=== PATIENT | male | born 1960 | race Caucasian/White ===

== ENCOUNTER 2017-09-09 15:16 | Inpatient (IN) | payer OTHER ==
[2017-09-09 15:58] LABS: Basophils # (A) 0.1 k/uL (0-0.2); Basophils % (A) 1 %; Eosinophils # (A) 0.2 k/uL (0-0.7); Eosinophils % (A) 2 %; HCT 45.2 % (39.0-53.0); HGB 15.9 gm/dL (13.0-17.5); Lymphocytes # (A) 2.2 k/uL (1.0-4.8); Lymphocytes % (A) 30 %; MCH 31.2 pg (25.0-35.0); MCHC 35.3 g/dL (31.0-37.0); MCV 88.3 fL (80.0-100.0); Mean Platelet Volume 7.4; Monocytes # (A) 0.3 k/uL (0-1.0); Monocytes % (A) 4 %; Neutrophils # (A) 4.3 k/uL (1.3-7.7); Neutrophils % (A) 61 %; Platelet Count 284 k/uL (150-450); RBC 5.11 m/uL (4.30-5.90); WBC 7.1 k/uL (3.8-10.6)
[2017-09-09 16:03] LABS: Partial Thromboplastin Time 24.5 sec (22.0-30.0); Prothrombin Time 9.9 sec (9.0-12.0)
[2017-09-09 16:07] LABS: ALT 14 U/L (21-72); AST 22 U/L (17-59); Albumin 4.3 g/dL (3.5-5.0); Alkaline Phosphatase 65 U/L (38-126); Anion Gap 13 mmol/L; Blood Urea Nitrogen 14 mg/dL (9-20); Calcium 9.6 mg/dL (8.4-10.2); Carbon Dioxide 20 mmol/L (22-30); Chloride 110 mmol/L (98-107); Glucose 122 mg/dL (74-99); Potassium 3.9 mmol/L (3.5-5.1); Sodium 143 mmol/L (137-145); Total Bilirubin 0.4 mg/dL (0.2-1.3); Total Protein 6.8 g/dL (6.3-8.2)
--- NOTE | 2017-09-09 16:07 | XR ---
EXAMINATION TYPE: XR chest 2V DATE OF EXAM: 09/09/2017 COMPARISON: NONE TECHNIQUE: PA and lateral views submitted. HISTORY: Weakness FINDINGS: The lungs are clear and there is no pneumothorax, pleural effusion, or focal pneumonia. Hyperinflat ion suggests COPD. No overt failure. Hypertrophic and degenerative change of the spine noted. Subsegm ental changes are seen at the right lung base. IMPRESSION: 1. COPD correlate for right basilar atelectasis.
--- NOTE | 2017-09-09 16:22 | ED ---
General Adult HPI - General Chief complaint: Weakness Stated complaint: poss stroke Time Seen by Provider: 09/09/17 15:41 Source: patient, family, RN notes reviewed, old records reviewed Mode of arrival: ambulatory Limitations: no limitations - History of Present Illness Initial comments: 57-year-old male presenting for evaluation of multiple complaints. Patient states he has felt restless over the past several days. He's had some intermittent pain in his left arm. Describes this as a squeezing sensation in his left arm, comes And goes over the past several days. States he has been stressed, dealing with things at work. Denies any chest pain but states he has had some gas with mild nausea. No vomiting. No abdominal pain. Denies any focal weakness. Denies headache or vision changes. States he feels quite well at the time my evaluation. Symptoms seem to be resolved. Past medical history of hypertension. No history of CAD. Patient is a current smoker. - Related Data Home Medications Medication Instructions Recorded Confirmed Atenolol [Tenormin] 25 mg PO HS 09/24/15 09/09/17 Mirtazapine [Remeron] 22.5 mg PO HS 09/24/15 09/09/17 Acetaminophen Tab [Tylenol] 325 - 650 mg PO Q6H PRN 09/09/17 09/09/17 Allergies Allergy/AdvReac Type Severity Reaction Status Date / Time No Known Allergies Allergy Verified 09/09/17 15:33 Review of Systems ROS Statement: Those systems with pertinent positive or pertinent negative responses have been documented in the HPI. ROS Other: All systems not noted in ROS Statement are negative. Past Medical History Past Medical History: Hypertension History of Any Multi-Drug Resistant Organisms: None Reported Additional Past Surgical History / Comment(s): RIGHT HAND Past Psychological History: No Psychological Hx Reported Smoking Status: Current every day smoker Past Alcohol Use History: Occasional Past Drug Use History: Marijuana General Exam Limitations: no limitations General appearance: alert, in no apparent distress Head exam: Present: atraumatic, normocephalic Eye exam: Present: normal appearance, PERRL, EOMI ENT exam: Present: normal exam. Absent: normal oropharynx, mucous membranes dry Neck exam: Present: normal inspection. Absent: tenderness, meningismus Respiratory exam: Present: normal lung sounds bilaterally. Absent: respiratory distress, wheezes Cardiovascular Exam: Present: regular rate, normal rhythm GI/Abdominal exam: Present: soft. Absent: distended, tenderness, guarding Extremities exam: Present: normal inspection, full ROM, normal capillary refill (Bilateral radial pulses 2+.). Absent: pedal edema, calf tenderness, other Neurological exam: Present: alert, oriented X3, CN II-XII intact. Absent: motor sensory deficit Psychiatric exam: Present: normal affect, anxious Skin exam: Present: warm, dry, intact. Absent: cyanosis, diaphoretic Course Vital Signs 09/09/17 09/09/17 15:20 16:26 Temperature 97.6 F Pulse Rate 60 Pulse Rate [ 65 Electronic Specialist ] Respiratory 20 Rate Blood Pressure 145/75 O2 Sat by Pulse 99 Oximetry EKG Findings - EKG Comments: EKG Findings:: EKG sinus rhythm, with PACs and PVC ventricular rate is 70, IN interval 172, QRS duration 88, QTC 442. No ST segment elevation or depression. Medical Decision Making - Medical Decision Making 57-year-old male presenting with some left arm squeezing pain and some indigestion which she attributed to gas. EKG is nonischemic. Symptoms have been coming and going over the past several days. CBC is within normal limits. CMP within normal limits. Troponin is elevated at 0.063. Chest x-ray shows COPD with no focal pneumonia or acute process. Given the patient's risk factors, the symptoms in the setting of an elevated troponin are consistent with non-ST segment elevated [place]. Patient is given aspirin, started on heparin infusion, he will be admitted for serial troponins and cardiology evaluation. - Lab Data Result diagrams: 09/09/17 15:40 09/09/17 15:40 Lab Results 09/09/17 09/09/17 09/09/17 Range/Units 15:40 15:40 15:40 WBC 7.1 (3.8-10.6) k/uL RBC 5.11 (4.30-5.90) m/uL Hgb 15.9 (13.0-17.5) gm/dL Hct 45.2 (39.0-53.0) % MCV 88.3 (80.0-100.0) fL MCH 31.2 (25.0-35.0) pg MCHC 35.3 (31.0-37.0) g/dL RDW 13.0 (11.5-15.5) % Plt Count 284 (150-450) k/uL Neutrophils % 61 % Lymphocytes % 30 % Monocytes % 4 % Eosinophils % 2 % Basophils % 1 % Neutrophils # 4.3 (1.3-7.7) k/uL Lymphocytes # 2.2 (1.0-4.8) k/uL Monocytes # 0.3 (0-1.0) k/uL Eosinophils # 0.2 (0-0.7) k/uL Basophils # 0.1 (0-0.2) k/uL PT (9.0-12.0) sec INR (<1.2) APTT (22.0-30.0) sec Sodium 143 (137-145) mmol/L Potassium 3.9 (3.5-5.1) mmol/L Chloride 110 H (98-107) mmol/L Carbon Dioxide 20 L (22-30) mmol/L Anion Gap 13 mmol/L BUN 14 (9-20) mg/dL Creatinine 0.80 (0.66-1.25) mg/dL Est GFR (CKD-EPI)AfAm >90 (>60 ml/min/1.73 sqM) Est GFR (CKD-EPI)NonAf >90 (>60 ml/min/1.73 sqM) Glucose 122 H (74-99) mg/dL Plasma Lactic Acid Mervin (0.7-2.0) mmol/L Calcium 9.6 (8.4-10.2) mg/dL Magnesium 2.0 (1.6-2.3) mg/dL Total Bilirubin 0.4 (0.2-1.3) mg/dL AST 22 (17-59) U/L ALT 14 L (21-72) U/L Alkaline Phosphatase 65 (38-126) U/L Total Creatine Kinase 112 (55-170) U/L CK-MB (CK-2) 0.5 (0.0-2.4) ng/mL CK-MB (CK-2) Rel Index 0.4 Troponin I 0.063 H* (0.000-0.034) ng/mL NT-Pro-B Natriuret Pep pg/mL Total Protein 6.8 (6.3-8.2) g/dL Albumin 4.3 (3.5-5.0) g/dL 09/09/17 09/09/17 09/09/17 Range/Units 15:40 15:40 15:40 WBC (3.8-10.6) k/uL RBC (4.30-5.90) m/uL Hgb (13.0-17.5) gm/dL Hct (39.0-53.0) % MCV (80.0-100.0) fL MCH (25.0-35.0) pg MCHC (31.0-37.0) g/dL RDW (11.5-15.5) % Plt Count (150-450) k/uL Neutrophils % % Lymphocytes % % Monocytes % % Eosinophils % % Basophils % % Neutrophils # (1.3-7.7) k/uL Lymphocytes # (1.0-4.8) k/uL Monocytes # (0-1.0) k/uL Eosinophils # (0-0.7) k/uL Basophils # (0-0.2) k/uL PT 9.9 (9.0-12.0) sec INR 1.0 (<1.2) APTT 24.5 (22.0-30.0) sec Sodium (137-145) mmol/L Potassium (3.5-5.1) mmol/L Chloride (98-107) mmol/L Carbon Dioxide (22-30) mmol/L Anion Gap mmol/L BUN (9-20) mg/dL Creatinine (0.66-1.25) mg/dL Est GFR (CKD-EPI)AfAm (>60 ml/min/1.73 sqM) Est GFR (CKD-EPI)NonAf (>60 ml/min/1.73 sqM) Glucose (74-99) mg/dL Plasma Lactic Acid Mervin 2.0 (0.7-2.0) mmol/L Calcium (8.4-10.2) mg/dL Magnesium (1.6-2.3) mg/dL Total Bilirubin (0.2-1.3) mg/dL AST (17-59) U/L ALT (21-72) U/L Alkaline Phosphatase (38-126) U/L Total Creatine Kinase (55-170) U/L CK-MB (CK-2) (0.0-2.4) ng/mL CK-MB (CK-2) Rel Index Troponin I (0.000-0.034) ng/mL NT-Pro-B Natriuret Pep 151 pg/mL Total Protein (6.3-8.2) g/dL Albumin (3.5-5.0) g/dL Critical Care Time Critical Care Time: Yes Total Critical Care Time: 35 Disposition Clinical Impression: NSTEMI (non-ST elevated myocardial infarction) Disposition: ADMITTED IP TO THIS [facility] Condition: Stable Referrals: Michelle Staley MD [Primary Care Provider] - 1-2 days Time of Disposition: 17:02 Decision to Admit Reason: Admit from EC Decision Date: 09/09/17 Decision Time: 17:02
--- NOTE | 2017-09-09 16:23 | CT ---
EXAMINATION TYPE: CT brain wo con DATE OF EXAM: 09/09/2017 COMPARISON: MRI 07/14/2011 HISTORY: 57-year-old male Hypertension and left arm pain TECHNIQUE: Examination was done in axial plane without intravenous contrast. Coronal and sagittal r econstructions performed. CT DLP: 1072.6 mGycm Automated exposure control for dose reduction was used. FINDINGS: There is no evidence of acute intracranial hemorrhage, acute ischemic changes, mass, mass-effect, or extra-axial fluid collection. There is no effacement of cerebral sulci or basal subarachnoid cister ns. There is no hydrocephalus. There is no midline shift. Shane-white matter distinction is preserv ed. Old lacunar infarct or prominent perivascular spaces left basal ganglia. The latter is favored when c omparing to 07/14/2011 MRI. Mild mucosal thickening ethmoid air cells. Mastoid air cells well pneumatized. IMPRESSION: No acute intracranial abnormality seen.
[2017-09-09 16:25] LABS: Creatine Kinase MB 0.5 ng/mL (0.0-2.4)
[2017-09-09 16:26] LABS: Troponin I 0.063 ng/mL (0.000-0.034)
[2017-09-09] MEDS ORDERED: HEPARIN SODIUM,PORCINE 5,000 UNIT/ML 1 ML VIAL IV PRN (16:33)
[2017-09-09] MEDS ORDERED: ASPIRIN 325 MG TAB PO STA (16:33)
[2017-09-09] MEDS ORDERED: HEPARIN SODIUM,PORCINE 5,000 UNIT/ML 1 ML VIAL IV ONE (16:33)
[2017-09-09] MEDS ORDERED: ONDANSETRON 4 MG/2 ML VIAL IVP PRN (16:56)
[2017-09-09] MEDS ORDERED: NALOXONE 0.4 MG/ML 1 ML VIAL IV PRN (16:56)
[2017-09-09] MEDS ORDERED: MORPHINE SULFATE 4MG/4ML SYRG IV PRN (16:56)
[2017-09-09] MEDS ORDERED: ACETAMINOPHEN TAB 325 MG TAB PO PRN (16:56)
[2017-09-09] MEDS: HEPARIN SOD,PORK IN 0.45% NACL 25,000 UNIT in 0.45% NACL 1 500ML.BAG IV SCH (17:33)
[2017-09-09] MEDS ORDERED: NICOTINE 21MG/24HR PATCH TRANSDERM STA (17:41)
[2017-09-09] MEDS: ATENOLOL 25 MG TAB PO SCH (20:50)
[2017-09-09] MEDS: 0.9% NACL WITH KCL 20 MEQ/L 1,000 ML IV SCH (21:35)
[2017-09-09 23:11] LABS: Creatine Kinase 94 U/L (55-170)
[2017-09-09 23:23] LABS: Creatine Kinase MB 0.4 ng/mL (0.0-2.4); Troponin I <0.012 ng/mL (0.000-0.034)
[2017-09-10 04:20] LABS: Creatine Kinase 86 U/L (55-170)
[2017-09-10 04:33] LABS: Creatine Kinase MB 0.4 ng/mL (0.0-2.4); Troponin I <0.012 ng/mL (0.000-0.034)
[2017-09-10 06:03] LABS: Basophils % (A) 0 %; Eosinophils # (A) 0.1 k/uL (0-0.7); Eosinophils % (A) 2 %; HCT 45.6 % (39.0-53.0); HGB 15.1 gm/dL (13.0-17.5); Lymphocytes # (A) 2.1 k/uL (1.0-4.8); Lymphocytes % (A) 25 %; MCH 29.7 pg (25.0-35.0); MCHC 33.1 g/dL (31.0-37.0); MCV 89.8 fL (80.0-100.0); Mean Platelet Volume 7.3; Monocytes # (A) 0.4 k/uL (0-1.0); Monocytes % (A) 4 %; Neutrophils # (A) 5.8 k/uL (1.3-7.7); Neutrophils % (A) 68 %; Platelet Count 238 k/uL (150-450); RBC 5.08 m/uL (4.30-5.90); WBC 8.5 k/uL (3.8-10.6)
[2017-09-10 06:19] LABS: ALT 23 U/L (21-72); AST 19 U/L (17-59); Albumin 3.7 g/dL (3.5-5.0); Alkaline Phosphatase 56 U/L (38-126); Anion Gap 10 mmol/L; Blood Urea Nitrogen 14 mg/dL (9-20); Carbon Dioxide 21 mmol/L (22-30); Chloride 111 mmol/L (98-107); Glucose 104 mg/dL (74-99); Potassium 3.9 mmol/L (3.5-5.1); Sodium 142 mmol/L (137-145); Total Bilirubin 0.6 mg/dL (0.2-1.3)
--- NOTE | 2017-09-10 09:25 | P.CRDCN ---
History of Present Illness Consult date: 09/10/17 Chief complaint: Left arm discomfort History of present illness: This is a pleasant 57-year-old gentleman with a past medical history significant for hypertension presented to the emergency room complaining of left arm discomfort. 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 He stated that he was at work yesterday when he started experiencing intermittent episodes of left arm discomfort and subsequently he developed mild left upper chest discomfort. No assisted his symptoms of shortness of breath, sweating, dizziness or lightheadedness, or syncope. No history of coronary artery disease but he does have hypertension as risk factor. Beside that he is a heavy smoker of 2 pack per day. No family history of coronary artery disease. The EKG showed sinus rhythm without any significant ST or T-wave abnormalities. The first set of cardiac enzymes came in to be slightly abnormal with subsequent 2 sets came in to be within normal limits. The patient continues to be pain-free after he was admitted to the hospital. Past Medical History Past Medical History: Hypertension History of Any Multi-Drug Resistant Organisms: None Reported Additional Past Surgical History / Comment(s): RIGHT HAND finger sx Past Anesthesia/Blood Transfusion Reactions: No Reported Reaction Smoking Status: Current every day smoker - Past Family History Mother Family Medical History: No Reported History Father Family Medical History: Cancer Additional Family Medical History / Comment(s): non hodgkins lymphoma Medications and Allergies Home Medications Medication Instructions Recorded Confirmed Type Atenolol [Tenormin] 25 mg PO HS 09/24/15 09/09/17 History Mirtazapine [Remeron] 22.5 mg PO HS 09/24/15 09/09/17 History Acetaminophen Tab [Tylenol] 325 - 650 mg PO Q6H PRN 09/09/17 09/09/17 History Allergies Allergy/AdvReac Type Severity Reaction Status Date / Time No Known Allergies Allergy Verified 09/09/17 15:33 Physical Exam Vitals: Vital Signs Temp Pulse Pulse Resp BP BP Pulse Ox 09/10/17 08:35 97.5 F L 56 L 16 121/78 93 L 09/10/17 04:00 96.2 F L 63 16 115/74 94 L 09/09/17 23:46 97.1 F L 54 L 16 117/76 95 09/09/17 20:00 97.7 F 58 L 16 137/87 96 09/09/17 18:25 97.5 F L 60 16 135/91 97 09/09/17 18:17 89 18 121/67 100 09/09/17 17:48 93 18 151/82 96 09/09/17 16:26 65 09/09/17 15:20 97.6 F 60 20 145/75 99 Intake and Output 09/09/17 09/10/17 09/10/17 22:59 06:59 14:59 Intake Total 652.857 Output Total 450 Balance 202.857 Intake: Intake, IV Titration 652.857 Amount 0.9% NaCl with KCl 20 Meq 400 /l 1,000 ml @ 50 mls/hr IV .Q20H OSMIN Rx#: [id number] Heparin Sod,Pork in 0.45% 252.857 NaCl 25,000 unit In 0.45 % NaCl 1 500ml.bag @ 12 UNITS/KG/HR 17.41 mls/hr IV .Q24H OSMIN Rx#: [id number] Output: Urine 450 Other: # Voids 1 Weight 72.575 kg 73.3 kg - Constitutional General appearance: no acute distress - Respiratory Respiratory: bilateral: CTA - Cardiovascular Rhythm: regular Heart sounds: normal: S1, S2 Results 09/10/17 05:46 09/10/17 05:46 Cardiac Enzymes 09/09/17 09/09/17 09/09/17 Range/Units 15:40 15:40 22:26 AST 22 (17-59) U/L CK-MB (CK-2) 0.5 0.4 (0.0-2.4) ng/mL Troponin I 0.063 H* <0.012 (0.000-0.034) ng/mL 09/10/17 09/10/17 Range/Units 03:34 05:46 AST 19 (17-59) U/L CK-MB (CK-2) 0.4 (0.0-2.4) ng/mL Troponin I <0.012 (0.000-0.034) ng/mL Coagulation 09/09/17 09/09/17 09/10/17 Range/Units 15:40 22:26 05:46 PT 9.9 (9.0-12.0) sec APTT 24.5 37.7 H 38.8 H (22.0-30.0) sec CBC 09/09/17 09/10/17 Range/Units 15:40 05:46 WBC 7.1 8.5 (3.8-10.6) k/uL RBC 5.11 5.08 (4.30-5.90) m/uL Hgb 15.9 15.1 (13.0-17.5) gm/dL Hct 45.2 45.6 (39.0-53.0) % Plt Count 284 238 (150-450) k/uL Comprehensive Metabolic Panel 09/09/17 09/10/17 Range/Units 15:40 05:46 Sodium 143 142 (137-145) mmol/L Potassium 3.9 3.9 (3.5-5.1) mmol/L Chloride 110 H 111 H (98-107) mmol/L Carbon Dioxide 20 L 21 L (22-30) mmol/L BUN 14 14 (9-20) mg/dL Creatinine 0.80 0.80 (0.66-1.25) mg/dL Glucose 122 H 104 H (74-99) mg/dL Calcium 9.6 9.0 (8.4-10.2) mg/dL AST 22 19 (17-59) U/L ALT 14 L 23 (21-72) U/L Alkaline Phosphatase 65 56 (38-126) U/L Total Protein 6.8 6.0 L (6.3-8.2) g/dL Albumin 4.3 3.7 (3.5-5.0) g/dL Current Medications Generic Name Dose Route Start Last Admin Trade Name Manoloq PRN Reason Stop Dose Admin Acetaminophen 650 mg 09/09/17 16:56 Tylenol Tab PO Q6HR PRN Mild Pain or Fever > 100.5 Atenolol 25 mg 09/09/17 21:00 09/09/17 20:50 Tenormin PO 25 mg HS OSMIN Administration Heparin Sodium (Porcine) 0 unit 09/09/17 16:33 Heparin IV PER PROTOCOL PRN Low PTT Protocol Heparin Sodium/Sodium Chloride 500 mls @ 17.41 mls/hr 09/09/17 16:45 06:26 25,000 unit/ Sodium Chloride IV 18 units/kg/hr .Q24H OSMIN 26.12 mls/hr Protocol Titration 12 UNITS/KG/HR Potassium Chloride/Sodium Chloride 1,000 mls @ 50 mls/hr 09/09/17 17:00 09/09 21:35 Ns-Kcl 20 Meq/L Iv Solution IV 50 mls/hr .Q20H OSMIN Administration Morphine Sulfate 4 mg 09/09/17 16:56 Morphine Sulfate (Inj) IV Q4HR PRN Severe Pain Naloxone HCl 0.2 mg 09/09/17 16:56 Narcan IV Q2M PRN Opioid Reversal Ondansetron HCl 4 mg 09/09/17 16:56 Zofran IVP Q8HR PRN Nausea And Vomiting Intake and Output 09/09/17 09/10/17 09/10/17 22:59 06:59 14:59 Intake Total 652.857 Output Total 450 Balance 202.857 Intake: Intake, IV Titration 652.857 Amount 0.9% NaCl with KCl 20 Meq 400 /l 1,000 ml @ 50 mls/hr IV .Q20H OSM[facility] Rx#: [id number] Heparin Sod,Pork in 0.45% 252.857 NaCl 25,000 unit In 0.45 % NaCl 1 500ml.bag @ 12 UNITS/KG/HR 17.41 mls/hr IV .Q24H OSMIN Rx#: [id number] Output: Urine 450 Other: # Voids 1 Weight 72.575 kg 73.3 kg 09/10/17 05:46 09/10/17 05:46 Assessment and Plan Assessment: Assessment #1 intermittent episodes of left arm discomfort #2 hypertension #3 significant history of smoking Plan #1 acute coronary syndrome to be ruled out #2 I'm going to obtain an echocardiogram was Doppler to assess for any wall motion abnormalities and assess the LV function #3 monitor the patient for additional 24 hours #4 follow-up with the patient.
--- NOTE | 2017-09-10 11:54 | P.HPIM ---
History of Present Illness H&P Date: 09/10/17 Chief Complaint: Epigastric discomfort, left arm pain Pipo Nagy 57-year-old male patient of Dr. Staley who presented to [facility] emergency room with a chief complaint of intermittent left arm pain over the last few days patient denies any clear chest pain however he describes epigastric discomfort that he thought was related to gas he also stated that he had episodes of nausea but no vomiting, patient states that he had significant stress at work over the last several days, his cardiac risk factors include hypertension and prolonged history of smoking, he was evaluated in the emergency room first troponin was slightly elevated he was started on IV heparin and was admitted to telemetry floor cardiology consultation was requested first EKG did not reveal any acute ischemic changes. Past Medical History Past Medical History: Hypertension History of Any Multi-Drug Resistant Organisms: None Reported Additional Past Surgical History / Comment(s): RIGHT HAND finger sx Past Anesthesia/Blood Transfusion Reactions: No Reported Reaction Smoking Status: Current every day smoker - Past Family History Mother Family Medical History: No Reported History Father Family Medical History: Cancer Additional Family Medical History / Comment(s): non hodgkins lymphoma Medications and Allergies Home Medications Medication Instructions Recorded Confirmed Type Atenolol [Tenormin] 25 mg PO HS 09/24/15 09/09/17 History Mirtazapine [Remeron] 22.5 mg PO HS 09/24/15 09/09/17 History Acetaminophen Tab [Tylenol] 325 - 650 mg PO Q6H PRN 09/09/17 09/09/17 History Allergies Allergy/AdvReac Type Severity Reaction Status Date / Time No Known Allergies Allergy Verified 09/09/17 15:33 Physical Exam Vitals: Vital Signs Temp Pulse Pulse Resp BP BP Pulse Ox 09/10/17 08:35 97.5 F L 56 L 16 121/78 93 L 09/10/17 04:00 96.2 F L 63 16 115/74 94 L 09/09/17 23:46 97.1 F L 54 L 16 117/76 95 09/09/17 20:00 97.7 F 58 L 16 137/87 96 09/09/17 18:25 97.5 F L 60 16 135/91 97 09/09/17 18:17 89 18 121/67 100 09/09/17 17:48 93 18 151/82 96 09/09/17 16:26 65 09/09/17 15:20 97.6 F 60 20 145/75 99 Intake and Output 09/09/17 09/10/17 09/10/17 22:59 06:59 14:59 Intake Total 652.857 Output Total 450 Balance 202.857 Intake: Intake, IV Titration 652.857 Amount 0.9% NaCl with KCl 20 Meq 400 /l 1,000 ml @ 50 mls/hr IV .Q20H [facility] Rx#: [id number] Heparin Sod,Pork in 0.45% 252.857 NaCl 25,000 unit In 0.45 % NaCl 1 500ml.bag @ 12 UNITS/KG/HR 17.41 mls/hr IV .Q24H [facility]SM[facility] Rx#: [id number] Output: Urine 450 Other: # Voids 1 Weight 72.575 kg 73.3 kg In general patient is alert and oriented 3 in no apparent distress HEENT head normocephalic and atraumatic Neck is supple no JVD no goiter no lymphadenopathy Chest exam reveals a few scattered crackles no wheezing Cardiac exam reveals regular heart sounds no gallops no murmurs Abdomen is soft nontender no organomegaly with normal bowel sounds Extremity exam reveals no edema no cyanosis or clubbing Neurological examination reveals no gross focal deficit Results CBC & Chem 7: 09/10/17 05:46 09/10/17 05:46 Labs: Abnormal Lab Results - Last 24 Hours (Table) 09/09/17 09/09/17 09/09/17 Range/Units 15:40 15:40 22:26 APTT 37.7 H (22.0-30.0) sec Chloride 110 H (98-107) mmol/L Carbon Dioxide 20 L (22-30) mmol/L Glucose 122 H (74-99) mg/dL ALT 14 L (21-72) U/L Troponin I 0.063 H* (0.000-0.034) ng/mL Total Protein (6.3-8.2) g/dL 09/10/17 09/10/17 Range/Units 05:46 05:46 APTT 38.8 H (22.0-30.0) sec Chloride 111 H (98-107) mmol/L Carbon Dioxide 21 L (22-30) mmol/L Glucose 104 H (74-99) mg/dL ALT (21-72) U/L Troponin I (0.000-0.034) ng/mL Total Protein 6.0 L (6.3-8.2) g/dL Assessment and Plan Plan: #1 episodes of epigastric discomfort left arm pain and nausea, without rohit chest pain per patient First set of troponin was elevated patient was started on IV heparin cardiology consultation was requested #2 hypertension maintained on atenolol blood pressure well controlled at this time will monitor #3 tobacco abuse patient counseled in length in regard to smoking cessation #4 will check fasting lipid profile during this admission Will follow for medical management thank you very much
[2017-09-10 12:46] VITALS: BMI 26.0
--- NOTE | 2017-09-10 12:59 | ECHOF ---
Referral Reason: MEASUREMENTS -------- HEIGHT: 167.6 cm WEIGHT: 72.6 kg BP: RVIDd: 3.3 cm (< 3.3) IVSd: 0.8 cm (0.6 - 1.1) LVIDd: 4.8 cm (3.9 - 5.3) LVPWd: 1.1 cm (0.6 - 1.1) IVSs: 1.5 cm LVIDs: 2.0 cm LVPWs: 1.6 cm LAESV Index (A-L): 20.43 ml/m Ao Diam: 3.2 cm (2.0 - 3.7) AV Cusp: 2.0 cm (1.5 - 2.6) LA Diam: 2.5 cm (2.7 - 3.8) MV EXCURSION: 12.148 mm (> 18.000) MV EF SLOPE: 91 mm/s (70 - 150) EPSS: 0.8 cm MV E Howard: 0.58 m/s MV DecT: 201 ms MV A Howard: 0.69 m/s MV E/A Ratio: 0.84 RAP: 5.00 mmHg RVSP: 11.86 mmHg FINDINGS -------- Sinus rhythm. This was a technically good study. The left ventricular size is normal. Left ventricular wall thickness is normal. Overall left vent ricular systolic function is normal with, an EF between 55 - 60 %. The right ventricle is mildly enlarged. The left atrium is normal in size. The right atrium is normal in size. The aortic valve is trileaflet, and appears structurally normal. No aortic stenosis or regurgitation. The mitral valve leaflets are mildly thickened. Osrs-sm-[id number] mitral regurgitation is present. Mild tricuspid regurgitation present. The right ventricular systolic pressure, as measured by Doppl er, is 11.86mmHg. Pulmonic valve appears structurally normal. The aortic root size is normal. Normal inferior vena cava with normal inspiratory collapse consistent with estimated right atrial pre ssure of 5 mmHg. The pericardium is normal. CONCLUSIONS -------- 1. Sinus rhythm. 2. This was a technically good study. 3. The left ventricular size is normal. 4. Left ventricular wall thickness is normal. 5. Overall left ventricular systolic function is normal with, an EF between 55 - 60 %. 6. The right ventricle is mildly enlarged. 7. The left atrium is normal in size. 8. The right atrium is normal in size. 9. The aortic valve is trileaflet, and appears structurally normal. No aortic stenosis or regurgitati on. 10. The mitral valve leaflets are mildly thickened. 11. Naxp-zz-tsitnndj mitral regurgitation is present. 12. Mild tricuspid regurgitation present. 13. The right ventricular systolic pressure, as measured by Doppler, is 11.86mmHg. 14. Pulmonic valve appears structurally normal. 15. The aortic root size is normal. 16. Normal inferior vena cava with normal inspiratory collapse consistent with estimated right atrial pressure of 5 mmHg. 17. The pericardium is normal. CHIEF NURSE: Eryn Bazan RDCS
[2017-09-10] MEDS: 0.9% NACL WITH KCL 20 MEQ/L 1,000 ML IV SCH (14:56)
[2017-09-10] MEDS ORDERED: MORPHINE ORAL SOLN 10 MG/5 ML CUP PO PRN (15:13)
[2017-09-10] MEDS: HEPARIN SOD,PORK IN 0.45% NACL 25,000 UNIT in 0.45% NACL 1 500ML.BAG IV SCH (17:56)
[2017-09-10] MEDS: ATENOLOL 25 MG TAB PO SCH (20:56)
[2017-09-10] MEDS: NICOTINE 21MG/24HR PATCH TRANSDERM SCH (23:27)
[2017-09-11 06:50] LABS: Basophils % (A) 1 %; Eosinophils # (A) 0.1 k/uL (0-0.7); Eosinophils % (A) 1 %; HCT 45.2 % (39.0-53.0); HGB 15.5 gm/dL (13.0-17.5); Lymphocytes # (A) 1.6 k/uL (1.0-4.8); Lymphocytes % (A) 23 %; MCH 30.4 pg (25.0-35.0); MCHC 34.3 g/dL (31.0-37.0); MCV 88.6 fL (80.0-100.0); Mean Platelet Volume 7.1; Monocytes # (A) 0.3 k/uL (0-1.0); Monocytes % (A) 4 %; Neutrophils % (A) 69 %; Platelet Count 237 k/uL (150-450); RDW 12.7 % (11.5-15.5); WBC 7.2 k/uL (3.8-10.6)
[2017-09-11] MEDS: NICOTINE 21MG/24HR PATCH TRANSDERM SCH ×2 (08:04→21:59)
[2017-09-11] MEDS: ATORVASTATIN 40 MG TAB PO SCH (08:04)
[2017-09-11] MEDS: 0.9% NACL WITH KCL 20 MEQ/L 1,000 ML IV SCH (09:53)
[2017-09-11] MEDS: HEPARIN SOD,PORK IN 0.45% NACL 25,000 UNIT in 0.45% NACL 1 500ML.BAG IV SCH (09:53)
--- NOTE | 2017-09-11 11:56 | P.PN ---
Subjective Progress Note Date: 09/11/17 Pipo Nagy 57-year-old male patient of Dr. Staley who presented to [facility] emergency room with a chief complaint of intermittent left arm pain over the last few days patient denies any clear chest pain however he describes epigastric discomfort that he thought was related to gas he also stated that he had episodes of nausea but no vomiting, patient states that he had significant stress at work over the last several days, his cardiac risk factors include hypertension and prolonged history of smoking, he was evaluated in the emergency room first troponin was slightly elevated he was started on IV heparin and was admitted to telemetry floor cardiology consultation was requested first EKG did not reveal any acute ischemic changes. On 09/11/2017 patient is alert and oriented 3 in no apparent distress he is complaining of epigastric discomfort and burping otherwise he denies any complaints there is no chest pain or shortness of breath no cough no nausea or vomiting no abdominal pain no diarrhea and no urinary symptoms Objective - Vital Signs Vital signs: Vital Signs Temp 97.7 F 09/11/17 08:08 Pulse 60 09/11/17 08:08 Resp 16 09/11/17 08:08 BP 155/90 09/11/17 08:08 Pulse Ox 95 09/11/17 08:08 Intake & Output 09/10/17 09/11/17 09/11/17 18:59 06:59 18:59 Intake Total 1567.143 400 Balance 1567.143 400 Weight 73.3 kg 73.4 kg Intake: Intake, IV Titration 247.143 400 Amount 0.9% NaCl with KCl 20 Meq 400 /l 1,000 ml @ 50 mls/hr IV .Q20H [facility] Rx#: [id number] Heparin Sod,Pork in 0.45% 247.143 NaCl 25,000 unit In 0.45 % NaCl 1 500ml.bag @ 12 UNITS/KG/HR 17.41 mls/hr IV .Q24H OSMIN Rx#: [id number] Oral 1320 Other: # Voids 1 - Exam In general patient is alert and oriented 3 in no apparent distress HEENT head normocephalic and atraumatic Neck is supple no JVD no goiter no lymphadenopathy Chest exam reveals a few scattered crackles no wheezing Cardiac exam reveals regular heart sounds no gallops no murmurs Abdomen is soft nontender no organomegaly with normal bowel sounds Extremity exam reveals no edema no cyanosis or clubbing Neurological examination reveals no gross focal deficit - Labs CBC & Chem 7: 09/11/17 06:26 09/10/17 05:46 Labs: Abnormal Lab Results - Last 24 Hours (Table) 09/10/17 09/11/17 Range/Units 11:28 06:26 APTT 49.0 H 50.0 H (22.0-30.0) sec Assessment and Plan Plan: #1 episodes of epigastric discomfort left arm pain and nausea, without rohit chest pain per patient First set of troponin was elevated patient was started on IV heparin cardiology consultation was requested plan is to proceed with cardiac catheterization tomorrow per cardiology #2 hypertension maintained on atenolol blood pressure well controlled at this time will monitor #3 tobacco abuse patient counseled in length in regard to smoking cessation #4 will check fasting lipid profile during this admission Will follow for medical management thank you very much
[2017-09-11] MEDS ORDERED: CALCIUM CARBONATE 500 MG CHEWABLE PO PRN (11:57)
[2017-09-11] MEDS ORDERED: ATORVASTATIN 40 MG TAB PO STA (12:27)
[2017-09-11] MEDS ORDERED: ALPRAZolam 0.25 MG TAB PO PRN (12:27)
[2017-09-11] MEDS ORDERED: SODIUM CHLORIDE 0.9% 1,000 ML in EMPTY BAG 1 BAG IV ONE (12:27)
[2017-09-11] MEDS ORDERED: NITROGLYCERIN SL TABS 0.4 MG TAB SUBLINGUAL PRN (12:27)
[2017-09-11] MEDS ORDERED: ASPIRIN 325 MG TAB PO STA (12:27)
[2017-09-11] MEDS ORDERED: ALPRAZolam 0.5 MG TAB PO PRN (12:27)
--- NOTE | 2017-09-11 12:27 | P.PN ---
Subjective Progress Note Date: 09/11/17 This is a pleasant 57-year-old gentleman with history of hypertension , who presented to the hospital with symptoms of left arm discomfort. Patient has apparently been under considerable amount of stress related to his work. Patient also is a smoker, nondiabetic, no hyperlipidemia. Patient was seen in consultation by Dr. Clark, the EKG showed sinus rhythm without any significant ST or T-wave abnormalities. His initial set of troponins came back to be abnormal with 2 subsequent normal troponins after that. Echocardiogram with Doppler study revealed an normal ejection fraction of 55-60%. Patient was advised to undergo cardiac catheterization, the risks and the benefits were explained to the patient and his significant other in detail, this will be performed tomorrow morning by Dr. Clark. His morning patient denies any chest pain, he is just complaining of a considerable amount of belching. Objective - Vital Signs Vital signs: Vital Signs Temp 97.7 F 09/11/17 08:08 Pulse 60 09/11/17 08:08 Resp 16 09/11/17 08:08 BP 155/90 09/11/17 08:08 Pulse Ox 95 09/11/17 08:08 Intake & Output 09/10/17 09/11/17 09/11/17 18:59 06:59 18:59 Intake Total 1567.143 400 Balance 1567.143 400 Weight 73.3 kg 73.4 kg Intake: Intake, IV Titration 247.143 400 Amount 0.9% NaCl with KCl 20 Meq 400 /l 1,000 ml @ 50 mls/hr IV .Q20H OSMIN Rx#: [id number] Heparin Sod,Pork in 0.45% 247.143 NaCl 25,000 unit In 0.45 % NaCl 1 500ml.bag @ 12 UNITS/KG/HR 17.41 mls/hr IV .Q24H OSMIN Rx#: [id number] Oral 1320 Other: # Voids 1 1 - Exam PHYSICAL EXAMINATION: HEENT: Head is atraumatic, normocephalic. Pupils equal, round. Neck is supple. There is no elevated jugular venous pressure. HEART EXAMINATION: Heart S1, S2 normal. No murmur or gallop heard. CHEST EXAMINATION: Lungs are clear to auscultation and precussion. No chest wall tenderness is noted on palpation or with deep breathing. ABDOMEN: Soft, nontender. Bowel sounds are heard. No organomegaly noted. EXTREMITIES: 2+ peripheral pulses with no evidence of peripheral edema and no calf tenderness noted. NEUROLOGIC patient is awake, alert and oriented -3. . - Labs CBC & Chem 7: 09/11/17 06:26 09/10/17 05:46 Labs: Abnormal Lab Results - Last 24 Hours (Table) 09/11/17 Range/Units 06:26 APTT 50.0 H (22.0-30.0) sec Assessment and Plan Plan: Assessment and plan #1 left arm discomfort with mildly abnormal troponin, EKG does not show any significant changes. Rule out a possible acute coronary syndrome. #2 hypertension #3 nicotine dependence Plan Echocardiogram with Doppler study was performed which revealed a normal left ventricular systolic function. Patient has been advised to undergo cardiac catheterization for more definitive diagnosis. Risks and the benefits were explained to him and his significant other in detail, this will be performed tomorrow by Dr. Clark. DNP note has been reviewed, I agree with a documented findings and plan of care. Patient was seen and examined.
[2017-09-11] MEDS: PANTOPRAZOLE 40 MG TABLET PO SCH (16:33)
[2017-09-11] MEDS ORDERED: MIRTAZAPINE 15 MG TAB PO SCH (21:00)
[2017-09-11] MEDS: ATENOLOL 25 MG TAB PO SCH (21:59)
[2017-09-12] MEDS: 0.9% NACL WITH KCL 20 MEQ/L 1,000 ML IV SCH (06:13)
[2017-09-12] MEDS: PANTOPRAZOLE 40 MG TABLET PO SCH (06:25)
[2017-09-12 06:48] LABS: Basophils # (A) 0.1 k/uL (0-0.2); Basophils % (A) 1 %; Eosinophils # (A) 0.2 k/uL (0-0.7); Eosinophils % (A) 2 %; HGB 14.8 gm/dL (13.0-17.5); Lymphocytes # (A) 1.8 k/uL (1.0-4.8); Lymphocytes % (A) 21 %; MCH 29.8 pg (25.0-35.0); MCHC 33.6 g/dL (31.0-37.0); MCV 88.8 fL (80.0-100.0); Mean Platelet Volume 7.3; Monocytes # (A) 0.5 k/uL (0-1.0); Monocytes % (A) 6 %; Neutrophils # (A) 6.3 k/uL (1.3-7.7); Neutrophils % (A) 71 %; Platelet Count 242 k/uL (150-450); RBC 4.96 m/uL (4.30-5.90); RDW 12.8 % (11.5-15.5); WBC 8.9 k/uL (3.8-10.6)
[2017-09-12] MEDS ORDERED: ATORVASTATIN 80 MG TAB PO ONE (07:00)
[2017-09-12] MEDS ORDERED: ASPIRIN 325 MG TAB PO ONE (07:00)
[2017-09-12 07:03] LABS: ALT 22 U/L (21-72); AST 16 U/L (17-59); Albumin 3.6 g/dL (3.5-5.0); Alkaline Phosphatase 59 U/L (38-126); Anion Gap 9 mmol/L; Blood Urea Nitrogen 10 mg/dL (9-20); Carbon Dioxide 22 mmol/L (22-30); Chloride 112 mmol/L (98-107); Glucose 95 mg/dL (74-99); Potassium 3.9 mmol/L (3.5-5.1); Sodium 143 mmol/L (137-145); Total Bilirubin 0.5 mg/dL (0.2-1.3); Total Protein 5.9 g/dL (6.3-8.2)
[2017-09-12] MEDS: ATORVASTATIN 40 MG TAB PO SCH (07:34)
[2017-09-12] MEDS: NICOTINE 21MG/24HR PATCH TRANSDERM SCH (07:37)
[2017-09-12 08:14] VITALS: RESP 18; TEMP 97.6
[2017-09-12] MEDS ORDERED: SODIUM CHLORIDE 0.9% 500 ML IV ONE (09:25)
[2017-09-12] MEDS ORDERED: MIDAZOLAM 2 MG/2 ML VIAL IV ONE (09:44)
[2017-09-12] MEDS ORDERED: LIDOCAINE 2% INJ 20 MG/ML SQ ONE (09:54)
[2017-09-12] MEDS: VERAPAMIL SYRINGE (5 MG/10 ML) INTRAARTER ONE ×2 (09:55→10:09)
[2017-09-12] MEDS ORDERED: HEPARIN SODIUM 1,000 UN/ML (10ML VL) IV ONE (09:56)
[2017-09-12] MEDS ORDERED: IOPAMIDOL-370 125ML BTL INJ ONE (10:05)
[2017-09-12] MEDS ORDERED: RX INFO: IV CONTRAST WAS GIVEN 1 EACH MISC MISCELLANE PRN (10:12)
[2017-09-12] MEDS ORDERED: SODIUM CHLORIDE 0.9% 1,000 ML IV SCH (10:15)
--- NOTE | 2017-09-12 10:33 | LTR ---
September 12, 2017 Re: Yakov Pipo Dear Dr. Staley: Mr. Pipo Nagy presented to the hospital with chest discomfort and ruled in for acute non ST elevation HI. He underwent a heart catheterization and that showed the occlusion in a very small branch of the right coronary artery, which is treated medically. I want to thank you for allowing us to participate in his care and please do not hesitate to call if you have any question or concern. Sincerely, MD YASMINE Ronquillo / MICHAEL: [id number] /
--- NOTE | 2017-09-12 10:39 | CC ---
CARDIAC CATHETERIZATION REPORT DATE OF SERVICE: 09/12/2017 PERFORMING PHYSICIAN: Lyle Up MD, service desk team lead. PROCEDURE PERFORMED: 1. Selective right and left coronary angiogram. 2. Left heart catheterization. 3. Left ventriculography. INDICATION: This is a pleasant 57-year-old gentleman who smokes 2 packs of cigarettes every day, presented to the hospital with chest discomfort and ruled in for acute [id number] myocardial infarction. Heart catheterization was recommended. APPROACH: Right radial artery. COMPLICATION: None. LEVEL OF SEDATION: Moderate with sedation length of 18 minutes. PROCEDURE DESCRIPTION: After obtaining an informed consent, the patient was brought to cardiac cardiac cath rn. The right radial artery was cannulated using micropuncture technique and a micropuncture wire passed easily, then I placed a 6-Cambodian sheath in the right radial artery. Subsequently I gave the patient 2 mg of verapamil IA and 10,000 units of heparin IV. Selective right and left coronary angiogram was performed using JR4 and JL3.5 catheters. Then I did left heart catheterization and left ventriculography using 5- Cambodian pigtail catheter. The procedure was completed without any complication. SELECTIVE CORONARY ANGIOGRAM: 1. The RCA is a large caliber vessel. It is a dominant vessel. The proximal mid and distal RCA are angiographically normal. The RCA distally bifurcates into PDA and PLV branches. The PDA branch is angiographically normal and the PLV branch is probably occluded distally, but it becomes a small caliber vessel. 2. The left main is angiographically normal. It bifurcates into left circumflex and left anterior descending artery. 3. The left circumflex is a large caliber vessel. It is a nondominant vessel. The proximal circ is angiographically normal and gives rise into a large OM branch, which seems to be angiographically normal. The mid left circumflex has mild plaque only and the distal left circumflex is angiographically normal. 4. The LAD; the left anterior descending artery appeared to be angiographically normal. HEMODYNAMICS: The left ventricular end-diastolic pressure was 12 mmHg and no gradient was identified across the aortic valve. LEFT VENTRICULOGRAPHY: Left ventriculography was performed in the [place]O projection and using a power injection. The left ventricular systolic function is low normal with EF about 50% with inferobasal hypokinesia. CONCLUSION: 1. Probably occluded very small distal PLV branch of the right coronary artery. 2. Normal left ventricular systolic function. POSTPROCEDURE MANAGEMENT: Medical treatment and follow up with the patient. YASMINE / MICHAEL: [id number] /
[2017-09-12 12:53] VITALS: BP 117/80
[2017-09-12 12:56] VITALS: PULSE 72
--- NOTE | 2017-09-12 13:58 | P.DS ---
Providers Date of admission: 09/09/17 16:56 Expected date of discharge: 09/12/17 Attending physician: Eduardo Aranda Consults: 09/09/17 16:57 Consult Physician Urgent Consulting Provider: Lyle Up Consult Reason/Comments: NSTEMI Do you want consulting provider notified?: Yes Primary care physician: Michelle Staley Hospital Course: Diagnosis on discharge: #1 episodes of epigastric discomfort left arm pain and nausea, without rohit chest pain per patient First set of troponin was elevated second and third troponin levels were normal patient underwent cardiac catheterization results are as below #2 hypertension maintained on atenolol blood pressure well controlled at this time will monitor #3 tobacco abuse patient counseled in length in regard to smoking cessation #4 will check fasting lipid profile during this admission, patient was started on Lipitor 40 mg by mouth daily and aspirin 81 mg by mouth daily Hospital course: Pipo Nagy 57-year-old male patient of Dr. Staley who presented to [facility] emergency room with a chief complaint of intermittent left arm pain over the last few days patient denies any clear chest pain however he describes epigastric discomfort that he thought was related to gas he also stated that he had episodes of nausea but no vomiting, patient states that he had significant stress at work over the last several days, his cardiac risk factors include hypertension and prolonged history of smoking, he was evaluated in the emergency room first troponin was slightly elevated he was started on IV heparin and was admitted to telemetry floor cardiology consultation was requested first EKG did not reveal any acute ischemic changes. On 09/11/2017 patient is alert and oriented 3 in no apparent distress he is complaining of epigastric discomfort and burping otherwise he denies any complaints there is no chest pain or shortness of breath no cough no nausea or vomiting no abdominal pain no diarrhea and no urinary symptoms Echocardiogram with Doppler study was performed which revealed a normal left ventricular systolic function. Patient underwent cardiac catheterization on 09/12/2017 which revealed probably occluded very small distal PLV branch of the right coronary artery, and normal left ventricular systolic function ejection fraction was 50%, with inferiorbasal hypokinesia. Patient was stable he did not have any recurrence of his chest pain was cleared for discharge and was discharged home on 09/12/2017 He will follow-up with his primary care physician Dr. Staley within one week Patient Condition at Discharge: Stable Plan - Discharge Summary Discharge Rx Participant: Yes New Discharge Prescriptions: New ALPRAZolam [Xanax] 0.5 mg PO Q6HR PRN tab PRN Reason: Moderate Anxiety Atorvastatin [Lipitor] 40 mg PO DAILY tab Calcium Carbonate [Tums] 1,000 mg PO QID PRN chew PRN Reason: Heartburn Nicotine 21Mg/24Hr Patch [Habitrol] 1 patch TRANSDERM DAILY patch Continue Mirtazapine [Remeron] 22.5 mg PO HS Atenolol [Tenormin] 25 mg PO HS Acetaminophen Tab [Tylenol] 325 - 650 mg PO Q6H PRN PRN Reason: Pain Discharge Medication List Atenolol [Tenormin] 25 mg PO HS 09/24/15 [History] Mirtazapine [Remeron] 22.5 mg PO HS 09/24/15 [History] Acetaminophen Tab [Tylenol] 325 - 650 mg PO Q6H PRN 09/09/17 [History] ALPRAZolam [Xanax] 0.5 mg PO Q6HR PRN tab 09/12/17 [Rx] Atorvastatin [Lipitor] 40 mg PO DAILY tab 09/12/17 [Rx] Calcium Carbonate [Tums] 1,000 mg PO QID PRN chew 09/12/17 [Rx] Nicotine 21Mg/24Hr Patch [Habitrol] 1 patch TRANSDERM DAILY patch 09/12/17 [Rx] Follow up Appointment(s)/Referral(s): Michelle Staley MD [Primary Care Provider] - 09/13/17 1:15 pm Lyle Up MD [STAFF PHYSICIAN] - 09/23/17 1:30 pm (No earlier appointments at this time. ) Patient Instructions/Handouts: Heart Healthy Diet (DC), After Radial Heart Catheterization (GEN)
== END 2017-09-12 15:05 | disposition home or self-care (01) | DRG 282 ==
LOC: EC 15:16 → 6SEL 16:56
PROVIDERS: ADMIT Internal Medicine; ATTEND Internal Medicine
PROC: B2111ZZ Fluoroscopy of Multiple Coronary Arteries using Low Osmolar Contrast (ICD-10-PCS; 2017-09-12)
PROC: B2151ZZ Fluoroscopy of Left Heart using Low Osmolar Contrast (ICD-10-PCS; 2017-09-12)
PROC: 4A023N7 Measurement of Cardiac Sampling and Pressure, Left Heart, Percutaneous Approach (ICD-10-PCS; principal; 2017-09-12 09:30)
DX: I21.4 Non-ST elevation (NSTEMI) myocardial infarction (principal); F17.210 Nicotine dependence, cigarettes, uncomplicated; I10 Essential (primary) hypertension; R79.89 Other specified abnormal findings of blood chemistry; J44.9 Chronic obstructive pulmonary disease, unspecified; Z80.7 Family history of other malignant neoplasms of lymphoid, hematopoietic and related tissues; Z79.899 Other long term (current) drug therapy; Z71.6 Tobacco abuse counseling; Z56.3 Stressful work schedule
CPT/HCPCS: 36415; 70450; 71046; 80053; 82550; 82553; 83605; 83735; 83880; 84484; 85025; 85610; 85730; 93005; 93306; 93458; 96365; 96376; 99291

== ENCOUNTER → 2018-05-26 | Outpatient (CLI) | payer OTHER ==
--- NOTE | 2018-05-26 08:54 | US ---
EXAMINATION TYPE: US abdomen complete DATE OF EXAM: 05/26/2018 COMPARISON: NONE CLINICAL HISTORY: R19.01 Right upper quadrant abdominal swelling, ma. pain on the right comes and goe s EXAM MEASUREMENTS: Liver Length: 14.4 cm Gallbladder Wall: 0.3 cm CBD: 0.5 cm Spleen: 12.0 cm Right Kidney: 11.1 x 5.0 x 5.4 cm Left Kidney: 11.6 x 4.3 x 5.1 cm Pancreas: wnl Liver: wnl Gallbladder: wnl Evidence for sonographic Macario's sign: no CBD: wnl Spleen: wnl Right Kidney: wnl Left Kidney: 2 cystic areas noted, largest = 2.1 x 1.8 x 1.5cm Upper IVC: wnl Abd Aorta: wnl The liver is homogenous. The intrahepatic portion of the IVC and proximal abdominal aorta are within normal limits. There is no evidence of cholelithiasis. Common bile duct is unremarkable. The visu alized portions of the pancreas are homogenous. The spleen is unremarkable. Kidneys are symmetric a nd free of hydronephrosis. No solid renal lesions are seen. IMPRESSION: 1. Simple renal cysts left kidney. Otherwise unremarkable study.
== END | disposition home or self-care (01) ==
LOC: RADUSWWP 07:19
PROVIDERS: ATTEND Family Medicine
DX: N28.1 Cyst of kidney, acquired (principal)
CPT/HCPCS: 76700

== ENCOUNTER → 2018-11-24 | Outpatient (CLI) | payer OTHER ==
--- NOTE | 2018-11-24 11:57 | FL ---
Barium swallow HISTORY: Dysphagia 13 images obtained, 1 minute 40 seconds fluoroscopy time Patient was given high density barium to drink. Double contrast study was evaluated. Swallowing mecha nism is normal. There is no extrinsic or intrinsic esophageal abnormality. No obstruction to flow. Snow spect a small sliding hiatal hernia is present. No gastroesophageal reflux present. IMPRESSION: Small sliding hiatal hernia.
--- NOTE | 2018-11-24 19:41 | EST ---
EXERCISE STRESS AGE: 58 SEX: Male HT: 66 WT: 170 PROTOCOL: Niko STAGE: 4 DURATION OF EXERCISE: 9:48 HEART RATE REST: 81 BLOOD PRESSURE REST: 126/77 MAXIMUM HEART RATE ACHIEVED: 114 MAXIMUM BLOOD PRESSURE: 183/75 85% MPHR: 138 100% MPHR: 162 METS: 11,3 INDICATIONS: Chest pain/hypertension. CLINICAL INFORMATION: Baseline rhythm is sinus mechanism, rate of 81, normal axis and intervals with one ventricular couplet. Baseline blood pressure 126/77 mmHg. Patient exercised on Niko protocol for 9 minute 48 seconds, reaching a peak rate of 114 beats per minute, which is equal to 70% of maximum predicted heart rate. Peak blood pressure 183/75 mmHg. Test was terminated secondary to fatigue and no chest pain. Electrocardiograph monitoring revealed occasional PVCs. There was no evidence of diagnostic ischemic ST deviation. CONCLUSION: 1. Good exercise tolerance with occasional premature ventricular contractions and one couplet. 2. Non-diagnostic electrocardiograph stress testing secondary to the inability to achieve 85% of maximum predicted heart rate. MMODL / IJN: [id number] / [facility]
== END | disposition home or self-care (01) ==
LOC: RADNMMAIN 08:29
PROVIDERS: ATTEND Family Medicine
DX: K44.9 Diaphragmatic hernia without obstruction or gangrene (principal); I10 Essential (primary) hypertension; R07.9 Chest pain, unspecified
CPT/HCPCS: 74220; 93017

== ENCOUNTER → 2019-02-01 | Outpatient (CLI) | payer OTHER ==
--- NOTE | 2019-02-01 16:03 | CTL ---
EXAMINATION TYPE: CT Low Dose Lung DATE OF EXAM ORDERED: 02/01/2019 HISTORY: Long-term tobacco use. Lung cancer screening CT DLP: [address] CTDI: 2.07 mGy Automated exposure control for dose reduction was used. SCREENING VISIT: Initial study COMPARISON: None TECHNIQUE: Low dose computed tomography scan was performed through the chest at 1 mm thick sections a nd reconstructed images in the coronal plane at [address] DIAGNOSTIC QUALITY: Satisfactory FINDINGS: LUNG NODULES: None. LUNGS: COPD: Severity: Mild Fibrosis: Severity: Moderate bibasilar Lymph nodes: No greater than 1 cm Other findings: Prominent right and left pulmonary arteries, CT findings suggesting underlying pulmon yolanda artery hypertension. BILATERAL PLEURAL SPACE: Effusion: None Calcification: None Thickening: None Pneumothorax: None HEART: Heart Size: Normal Coronary calcification: Mild Pericardial effusion: None OTHER FINDINGS: Upper abdomen: None Bony thorax: Mild multilevel spurring Supraclavicular region: None Other: Prominent but subcentimeter lymph nodes throughout the bilateral axilla. IMPRESSION: No suspicious nodules FOLLOW UP CT CHEST RECOMMENDATION: Annual low-dose lung screening CT CT LUNG RAD: Lung-Rad 1 Negative
== END | disposition home or self-care (01) ==
LOC: RADCTMAIN 15:37
PROVIDERS: ATTEND Family Medicine
DX: Z12.2 Encounter for screening for malignant neoplasm of respiratory organs (principal); Z87.891 Personal history of nicotine dependence

== ENCOUNTER → 2020-05-26 | Outpatient (CLI) | payer OTHER ==
--- NOTE | 2020-05-26 14:08 | CTL ---
EXAMINATION TYPE: CT Low Dose Lung DATE OF EXAM ORDERED: 05/26/2020 HISTORY: 59-year-old male Personal history of tobacco use.. Lung cancer screening CT DLP: 119.[address] CTDI: 3.3 mGy Automated exposure control for dose reduction was used. SCREENING VISIT: 1 year 4 months after baseline screening COMPARISON: 02/01/2019 TECHNIQUE: Low dose computed tomography scan was performed through the chest at 1 mm thick sections a nd reconstructed images in the coronal and sagittal plane. CT DIAGNOSTIC QUALITY: Satisfactory FINDINGS: Heart normal size without pericardial effusion. Mild LCA coronary artery calcifications are present. Aorta normal caliber with conventional branching anatomy and minimal scattered atherosclerotic calcif ications. No thoracic lymphadenopathy by CT size criteria. Mild to moderate centrilobular emphysema. Mild diffuse bronchial wall thickening. Strandy atelectasis or scarring in the lower lungs. There is an area of new 1.2 cm nodularity at the inferior lingula, axial image 176 could represent an area of nodular atelectasis and should be reassessed and short interval follow-up. Otherwise, no consolidation or pleural effusion. Visualized upper abdomen shows no gross abnormality. Bones: Mild degenerative disc disease midthoracic spine. No osseous destructive process. IMPRESSION: 1. LungRADS Category 4B (suspicious, >15% chance of malignancy); new nodularity inferior lingula equ ivocal between a new nodule versus nodular atelectasis. 2. COPD with mild to moderate emphysema. RECOMMENDATION: 1. Follow-up low-dose CT chest in 2-3 months to reassess the inferior lingular nodularity. 2. Smoking cessation.
== END | disposition home or self-care (01) ==
LOC: RADCTMAIN 12:08
PROVIDERS: ATTEND Family Medicine
DX: Z12.2 Encounter for screening for malignant neoplasm of respiratory organs (principal); J43.9 Emphysema, unspecified; R91.8 Other nonspecific abnormal finding of lung field; F17.210 Nicotine dependence, cigarettes, uncomplicated

== ENCOUNTER → 2020-07-28 | Outpatient (CLI) | payer OTHER ==
--- NOTE | 2020-07-29 09:40 | CTL ---
EXAMINATION TYPE: CT Low Dose Lung DATE OF EXAM ORDERED: 07/28/2020 HISTORY: Personal history tobacco use. Lung cancer screening CT DLP: 80.[address] CTDI: 2.2 mGy Automated exposure control for dose reduction was used. SCREENING VISIT: 3 COMPARISON: 05/26/2020, 02/01/2019 TECHNIQUE: Low dose computed tomography scan was performed through the chest at 1 mm thick sections a nd reconstructed images in the coronal plane at [address] DIAGNOSTIC QUALITY: Satisfactory FINDINGS: LUNG NODULES: Present, detailed below: Right upper lobe subpleural 2 mm nodule is stable on axial image 30, 1 mm subpleural nodular density on axial image 40 present in the right upper lobe anteriorly is also unchanged as is the subpleural 1 mm nodular density axial image 51. LUNGS: COPD: Severity: Moderate Fibrosis: Severity: Mild Lymph nodes: None Other findings: RIGHT PLEURAL SPACE: Effusion: None Calcification: None Thickening: None Pneumothorax: None LEFT PLEURAL SPACE: Effusion: None Calcification: None Thickening: None Pneumothorax: None HEART: Heart Size: Normal Coronary calcification: Mild Pericardial effusion: OTHER FINDINGS: Upper abdomen: Unremarkable Bony thorax: There is thoracic spondylosis Supraclavicular region: Unremarkable Other: IMPRESSION: Benign CT LUNG RAD AND CT CHEST RECOMMENDATION: Lung-Rad 2 Benign Appearance or Behavior: Continue annual sc reening with LDCT in 12 months. S Modifier (other clinically significant findings):
== END | disposition home or self-care (01) ==
LOC: RADCTMAIN 18:34
PROVIDERS: ATTEND Family Medicine
DX: Z12.2 Encounter for screening for malignant neoplasm of respiratory organs (principal); F17.210 Nicotine dependence, cigarettes, uncomplicated
CPT/HCPCS: 71271

== ENCOUNTER → 2021-08-04 | Outpatient (CLI) | payer OTHER ==
--- NOTE | 2021-08-04 09:13 | CTL ---
EXAMINATION TYPE: CT Low Dose Lung DATE OF EXAM ORDERED: 08/04/2021 HISTORY: Personal history of tobacco use. Lung cancer screening CT DLP: 100.[address] CTDI: 2.90 mGy Automated exposure control for dose reduction was used. SCREENING VISIT: 4 COMPARISON: CT dated 07/28/2020 TECHNIQUE: Low dose computed tomography scan was performed through the chest at 1 mm thick sections a nd reconstructed images in multiple planes at 1 mm and [address] DIAGNOSTIC QUALITY: Satisfactory FINDINGS: LUNG NODULES: Stable tiny pulmonary nodules seen at the lateral of the the right lung apex measuring up to 2 mm (im ages #43, 47, 54 and 65). LUNGS: COPD: Severity: Moderate Fibrosis: Severity: Minimal Lymph nodes: None Other findings: Newly seen groundglass opacity at the most posterior aspect of the right lung base an d to a lesser extent in the left lung base, nonspecific and probably inflammatory/infectious in etiol ogy, please correlate clinically. RIGHT PLEURAL SPACE: Effusion: None Calcification: None Thickening: None Pneumothorax: None LEFT PLEURAL SPACE: Effusion: None Calcification: None Thickening: None Pneumothorax: None HEART: Heart Size: Normal Coronary Calcification: Mild Pericardial Effusion: None OTHER FINDINGS: Upper abdomen: Unremarkable Bony thorax: No aggressive bone lesion. Supraclavicular region: None Other: None IMPRESSION: Stable benign nodules. CT LUNG RAD AND CT CHEST RECOMMENDATION: Category 2, benign appearance or behavior: Continue annual s creening with LDCT in 12 months. S Modifier (other clinically significant findings): None
== END | disposition home or self-care (01) ==
LOC: RADCTMAIN 07:20
PROVIDERS: ATTEND Family Medicine
DX: Z12.2 Encounter for screening for malignant neoplasm of respiratory organs (principal); R91.1 Solitary pulmonary nodule; Z87.891 Personal history of nicotine dependence
CPT/HCPCS: 71271

== ENCOUNTER 2023-07-26 09:56 | Day surgery (SDC) | payer OTHER ==
[2023-07-22 13:02] VITALS: BMI 28.2
[~2023-07-26 09:56] MED LIST: LIDOCAINE 1% (10MG/ML) FOR IV START INTRADERMA PRN
[2023-07-26] MEDS: LACTATED RINGERS 1,000 ML IV SCH (10:39)
[2023-07-26 11:06] VITALS: RESP 16; TEMP 98
[2023-07-26] MEDS ORDERED: PROPOFOL 10 MG/ML 20 ML VIAL IV ONE (11:39)
--- NOTE | 2023-07-26 11:52 | P.PCN ---
Date of Procedure: 07/26/23 Procedure(s) Performed: BRIEF HISTORY: Patient is a 63-year-old pleasant white male scheduled for an elective colonoscopy as a part of screening for colon cancer. PROCEDURE PERFORMED: Colonoscopy with snare polypectomy. PREOPERATIVE DIAGNOSIS screening for colon cancer. IV sedation per Anesthesia. PROCEDURE: After informed consent was obtained, the patient, was brought into the endoscopy unit. IV sedation was administered by Anesthesia under continuous monitoring. Digital rectal examination was normal. Initially the Olympus CF-160 flexible video colonoscope was then inserted in the rectum, gradually advanced into the cecum without any difficulty. Careful examination was performed as the scope was gradually being withdrawn. Ileocecal valve and the appendiceal orifice were visualized and appeared normal. Prep was fair.. Mucosa of the cecum, normal. In the ascending colon there was a 1 cm broad-based polyp removed by snare polypectomy. Rest of the ascending colon, transverse colon, appeared normal. In the descending colon there was a 1.5 cm broad-based polyp removed by snare polypectomy. Diffuse scattered diverticulosis seen. Rest of the descending colon, sigmoid colon, and rectum appeared normal. Retroflexion was performed in the rectum and no lesions were seen. The patient tolerated the procedure well. IMPRESSION: 1 cm ascending colon polyp status post polypectomy 1.5 cm descending colon Polyp status post polypectomy Scattered diffuse diverticulosis. RECOMMENDATIONS: Findings of this examination were discussed with the patient as well as his family.. He was advised to follow up with the biopsy results. If the biopsy revealed adenoma he can have a repeat colonoscopy in 3 years.
[2023-07-26 12:13] VITALS: BP 136/88; PULSE 66
== END 2023-07-26 12:26 | disposition home or self-care (01) ==
LOC: ORWHC2ENDO 09:56
PROVIDERS: ATTEND Internal Medicine Gastroenterology
DX: Z12.11 Encounter for screening for malignant neoplasm of colon (principal); D12.2 Benign neoplasm of ascending colon; D12.4 Benign neoplasm of descending colon; K57.30 Diverticulosis of large intestine without perforation or abscess without bleeding; I10 Essential (primary) hypertension; E78.5 Hyperlipidemia, unspecified; J44.9 Chronic obstructive pulmonary disease, unspecified; Z79.82 Long term (current) use of aspirin; Z79.51 Long term (current) use of inhaled steroids; Z79.899 Other long term (current) drug therapy
CPT/HCPCS: 88305; 45385; J2704

== ENCOUNTER → 2023-08-16 | Outpatient (CLI) | payer OTHER ==
--- NOTE | 2023-08-16 12:23 | CTL ---
EXAMINATION TYPE: CT Low Dose Lung DATE OF EXAM ORDERED: 08/16/2023 HISTORY: . Lung cancer screening CT DLP: 120.[address] CTDI: 3.2 mGy Automated exposure control for dose reduction was used. SCREENING VISIT: Follow-up. COMPARISON: 08/05/2022. TECHNIQUE: Low dose computed tomography scan was performed through the chest at 1 mm thick sections a nd reconstructed images in multiple planes at 1 mm and [address] DIAGNOSTIC QUALITY: Satisfactory FINDINGS: Mediastinum and Tonya: There is no axillary, mediastinal or hilar lymphadenopathy. Pleural and Pericardial spaces: There are no pleural or pericardial effusions. Upper Abdomen: The visualized upper abdomen is unremarkable. Cardiovascular: There is mild vascular calcification throughout the thoracic aorta without evidence o f aneurysmal dilation. Mild coronary calcium seen within the left anterior descending. Lung Parenchyma and Airways: There is a new 5.7 mm right upper lobe nodule on series 4 image 56. Ther e is moderate upper lobe predominant paraseptal emphysema and diffuse centrilobular emphysema. There are a few linear bands of opacity otherwise seen which are likely atelectasis or scarring. There is n o focal area of consolidation. Bones: No fracture or aggressive osseous lesion. IMPRESSION: 1. New 5.7 mm right upper lobe pulmonary nodule. 2. Moderate emphysema. 3. Mild coronary artery calcifications. CT LUNG RAD AND CT CHEST RECOMMENDATION: Lung-Rad 3 Probably Benign: 6 month follow-up LDCT.
== END | disposition home or self-care (01) ==
LOC: RADCTMAIN 07:05
PROVIDERS: ATTEND Family Medicine
DX: Z12.2 Encounter for screening for malignant neoplasm of respiratory organs (principal); R91.1 Solitary pulmonary nodule; J43.2 Centrilobular emphysema; I25.10 Atherosclerotic heart disease of native coronary artery without angina pectoris
CPT/HCPCS: 71271

== ENCOUNTER → 2024-03-05 | Outpatient (CLI) | payer OTHER ==
--- NOTE | 2024-03-05 10:25 | CTL ---
EXAMINATION TYPE: CT Low Dose Lung DATE OF EXAM: 03/05/2024 9:33 AM CLINICAL INDICATION: Male, 63 years old with history of R91.1 SOLITARY PULMONARY NODULE; current smok er 2ppd , history of tobacco use. COMPARISON: None. TECHNIQUE: Multiple axial non-contrast scans were obtained from approximately the lung apices through the upper abdomen. Coronal and sagittal reformatted images were obtained. Low dose technique was uti lized. CT DLP: 117.7 mGycm, Automated exposure control for dose reduction was used. CT Contrast: Contrast used: None Oral contrast used: None FINDINGS: ======== Lack of intravenous contrast and low dose technique limits the evaluation of the vascular and soft ti ssue structures. LUNGS: No evidence of pulmonary fibrosis. No evidence of focal consolidation, pneumothorax or pleural effusion. Centrilobular emphysema changes. Nodules: RUL: Increasing architectural distortion/consolidation the right upper lung measuring 20 x 14 mm not seen on 08/16/2023. RML: None. RLL: None. JOE: Stable appearance of lingular consolidation/atelectasis.. LLL: None. AIRWAY: Patent and unremarkable. HEART: Size within normal limits.Atherosclerosis of the arterial vasculature. MEDIASTINUM: No gross evidence of adenopathy. VASCULATURE: No aortic aneurysm. MUSCULOSKELETAL: No acute osseous abnormalities SOFT TISSUES/LYMPH NODES: Unremarkable. LOWER NECK: No significant findings. UPPER ABDOMEN: Probable simple appearing left hepatic lobe cyst. IMPRESSION: 1. Consolidation in the right lung apex possibly representing atelectasis and/or scarring. Consider P ET/CT to exclude malignancy which is felt to be less likely. 2. Mild emphysema. CT LUNG RAD AND CT CHEST RECOMMENDATION: Lung-Rad 4A Suspicious: Follow-up 3 month LDCT or PET/CT may be used when there is a > 8 mm solid component. S Modifier (other clinically significant findings): None Recommend smoking cessation (if current smoker), or continuation of smoking cessation (if prior smoke r). Annual screening for lung cancer with low-dose computed tomography is recommended in adults ages 55 to 77 years who have a 30 pack-year smoking history and currently smoke or have quit within the pa st 15 years. Screening should be discontinued once a person has not smoked for 15 years or develops a health problem that substantially limits life expectancy or the ability or willingness to have curat fabby lung surgery. Lung rads 2021 [email or web address] [facility], , 03/05/2024 10:22 AM
== END | disposition home or self-care (01) ==
LOC: RADCTMAIN 09:13
PROVIDERS: ATTEND Family Medicine
DX: R91.1 Solitary pulmonary nodule
CPT/HCPCS: 71271

== ENCOUNTER → 2024-06-07 | Outpatient (CLI) | payer OTHER ==
--- NOTE | 2024-06-09 15:12 | PE ---
EXAMINATION TYPE: PET CT fusion skull to thigh DATE OF EXAM: 06/07/2024 CLINICAL INDICATION:Male, 63 years old with history of R91.8 anormal findings lung field; TECHNIQUE: Following the intravenous administration of 11.19 mCi of F-18 FDG, whole body images are performed from the skull base to the midthigh. Images are reviewed on the computer in the coronal, axial, and sagittal planes. Reconstructed rotating images are created on independent workstation and reviewed on the computer. A non-contrast CT is performed in conjunction with the PET scan. Glucose level 115 mg/dL CT DLP: 629 mGycm, Automated exposure control for dose reduction was used. COMPARISON: CT CTs dating back to 08/16/2023, PET/CT None, MRI: None FINDINGS: Mediastinal SUV mean is 1.44. Hepatic parenchyma SUV mean is 2.5. SKULL BASE AND NECK: No suspicious radiotracer activity. CHEST, MEDIASTINUM, AND HILAR REGION: Right upper lung pulmonary nodule Max SUV 4.0 measuring up to 16 mm. There are some scarring changes in the right upper lung also present. Physiologic uptake within the axillary lymph nodes bilaterally max SUV on the right 2.1 and on the le ft 2.0. ABDOMEN AND PELVIS: No suspicious radiotracer activity. MUSCULOSKELETAL STRUCTURES: No suspicious radiotracer activity. OTHER CT: Atherosclerosis of the carotid bifurcations. Bilaterally aphakia. Atherosclerosis of the co ronary arteries. Left hepatic probable cyst. Left renal cortical cyst. Inflammation changes around the right colon posteriorly around the diverticula series 3 image 164 sug gestive of diverticulitis. The appendix is normal. Scattered other colonic diverticula present. IMPRESSION: 1. Right upper lung pulmonary nodule/consolidation with increased metabolic activity concerning for malignancy until proven otherwise. Alternatively this may represent scarring and atelectasis given pa raseptal emphysematous changes in the right upper lung. This overall hasn't changed in size compared to 02/17/2024 and may have be slightly smaller. Close surveillance with CT imaging recommended at a [facility]. 2. Evidence of active uncomplicated diverticulitis of the right colon/descending colon. A Yellow level critical message alert has been initiated for Michelle Staley MD via the [employer] Critical Results System on 06/09/2024 3:10 PM. This message alert has been sent to Michelle welch MD via the preferences provided by the clinician for the receipt of Radiology Critical Findings. Message ID [id number]. [facility], , 06/09/2024 3:10 PM
== END | disposition home or self-care (01) ==
LOC: RADPETMAIN 06:50
PROVIDERS: ATTEND Family Medicine
DX: R91.8 Other nonspecific abnormal finding of lung field (principal); K57.32 Diverticulitis of large intestine without perforation or abscess without bleeding
CPT/HCPCS: 78815; A9552

== ENCOUNTER → 2024-11-19 | Outpatient (CLI) | payer OTHER ==
--- NOTE | 2024-11-19 11:41 | CT ---
EXAMINATION TYPE: CT chest w con DATE OF EXAM: 11/19/2024 10:47 AM COMPARISON: 06/07/2024, 03/05/2024 CLINICAL INDICATION: Male, 64 years old with history of R91.1 SOLITARY PULMONARY NODULE; PHH, pulmona ry nodule TECHNIQUE: Multiple axial images were obtained through the chest. Sagittal and coronal reformats were created for review. MIP was performed on a separate workstation. Contrast used:100 mL of Isovue 300 with IV Contrast (None if empty) Oral contrast used: (None if empty) CT DLP: 415.9 mGycm, Automated exposure control for dose reduction was used. FINDINGS: LUNGS: No evidence of pulmonary fibrosis. No evidence of focal consolidation, pneumothorax or pleural effusion. Centrilobular emphysema changes. Nodules: RUL: Stable architectural distortion/consolidation the right upper lung measuring 13 x 9 mm on ax ial imaging compared to one to 2024 and decreased from 03/05/2024. No new pulmonary nodules in the rig ht upper lobe. RML: None. RLL: None. JOE: Stable appearance of lingular consolidation/atelectasis.. LLL: None. AIRWAY: Patent and unremarkable. HEART: Size within normal limits.Atherosclerosis of the arterial coronary arteries is mild.. MEDIASTINUM: No gross evidence of adenopathy. VASCULATURE: No aortic aneurysm. MUSCULOSKELETAL: No acute osseous abnormalities SOFT TISSUES/LYMPH NODES: Mild gynecomastia changes. LOWER NECK: No significant findings. UPPER ABDOMEN: Probable simple appearing left hepatic lobe cyst. No follow-up recommended. IMPRESSION: 1. Stable right upper lobe architectural distortion/nodule back to 06/07/2024. No new or enlarging pulm onary nodules. No lymphadenopathy. 2. Mild emphysema. [facility], , 11/19/2024 11:38 AM
== END | disposition home or self-care (01) ==
LOC: RADCTMAIN 10:24
PROVIDERS: ATTEND Internal Medicine
DX: J43.2 Centrilobular emphysema (principal); R91.1 Solitary pulmonary nodule
CPT/HCPCS: 71260; Q9967